=== PATIENT | female | born 1990 | race Caucasian/White ===

== ENCOUNTER 2020-12-18 12:31 | Outpatient (CLI) | payer MEDICAID ==
[~2020-12-18 12:31] MED LIST: HYDR-4383 PO; NO HOME MEDS
== END 2020-12-18 23:59 | disposition home or self-care (01) ==
LOC: RAD 12:31
DX: F11.20 Opioid dependence, uncomplicated (principal)
CPT/HCPCS: 93005

== ENCOUNTER 2023-10-19 15:22 | Outpatient (CLI) | payer MEDICAID | END 2023-10-19 23:59 | disposition home or self-care (01) | LOC: RAD 15:22 | PROVIDERS: ATTEND Physician Assistant | DX: R94.31 Abnormal electrocardiogram [ECG] [EKG] (principal); F11.20 Opioid dependence, uncomplicated | CPT/HCPCS: 93005 ==

== ENCOUNTER 2024-03-11 10:18 | Emergency (ER) | payer SELFPAY ==
[~2024-03-11] VITALS: Ht 162.6 cm; Wt 97.8 kg
[2024-03-11] MEDS: SUMAtriptan succ. 6 MG/0.5ml vial SQ ONE (12:05)
[2024-03-11] MEDS: ketorolac trometh 30MG/ML vial 30 MG/ML VIAL IM ONE (12:06)
[2024-03-11 12:12] VITALS: BP 140/80; PULSE 70; RESP 16; TEMP 97.7; O2SAT 99
[2024-03-12] MEDS ORDERED: IBUP-1984 PO (13:35)
[2024-03-12] MEDS ORDERED: METO-292 PO (13:35)
[2024-03-12] MEDS ORDERED: DIPH25CA52 PO (13:35)
== END 2024-03-11 12:14 | disposition home or self-care (01) ==
LOC: ER 10:18
DX: G43.909 Migraine, unspecified, not intractable, without status migrainosus (principal); M19.90 Unspecified osteoarthritis, unspecified site
CPT/HCPCS: 96372; 99284; J1885; J3030

== ENCOUNTER 2024-03-12 10:28 | Emergency (ER) | payer OTHER ==
[~2024-03-12] VITALS: Ht 162.6 cm; Wt 96.0 kg
[2024-03-12 10:34] VITALS: TEMP 97.8
[2024-03-12 13:28] VITALS: BP 114/79; PULSE 79; O2SAT 95
[2024-03-12] MEDS ORDERED: IBUP-1984 PO (13:35)
[2024-03-12] MEDS ORDERED: DIPH25CA52 PO (13:35)
[2024-03-12] MEDS ORDERED: METO-292 PO (13:35)
[2024-03-12 13:47] VITALS: RESP 16
[2024-03-12] MEDS: proCHLORperazine 10 MG/2 ml inj IM ONE (13:47)
[2024-03-12] MEDS: ketorolac trometh 15mg/ml vial 15 MG/ML ML IM ONE (13:47)
[2024-03-12] MEDS: diphenhydrAMINE 25mg capsule PO ONE (13:48)
== END 2024-03-12 13:53 | disposition home or self-care (01) ==
LOC: ER 10:28
DX: G43.909 Migraine, unspecified, not intractable, without status migrainosus (principal); M19.90 Unspecified osteoarthritis, unspecified site
CPT/HCPCS: 96372; 99284; J0780; J1885; Q0163

== ENCOUNTER 2024-04-08 08:08 | Emergency (ER) | payer OTHER ==
[~2024-04-08] VITALS: Ht 162.6 cm; Wt 90.0 kg
[~2024-04-08 08:08] MED LIST changes: +DIPH25CA52 PO; +METO-292 PO
[2024-04-08 08:09] VITALS: BP 138/94; PULSE 117; RESP 16; O2SAT 98
[2024-04-08 10:30] LABS: STREP A SCREEN NEGATIVE (Neg)
[2024-04-08] MEDS ORDERED: PRED10TA23 PO (10:34)
[2024-04-08 11:01] VITALS: TEMP 98.2
== END 2024-04-08 11:02 | disposition home or self-care (01) ==
LOC: ER 08:08
DX: J39.2 Other diseases of pharynx (principal); J02.9 Acute pharyngitis, unspecified; G43.909 Migraine, unspecified, not intractable, without status migrainosus; M19.90 Unspecified osteoarthritis, unspecified site; Z79.52 Long term (current) use of systemic steroids
CPT/HCPCS: 87081; 87880; 99283

== ENCOUNTER 2024-04-17 07:55 | Emergency (ER) | payer SELFPAY ==
[~2024-04-17] VITALS: Ht 162.6 cm; Wt 101.5 kg
[2024-04-17] MEDS ORDERED: PRED20TA PO (08:38)
[2024-04-17] MEDS: ketorolac trometh 15mg/ml vial 15 MG/ML ML IM ONE (08:48)
[2024-04-17] MEDS: predniSONE 20 mg tablet PO ONE ×2 (08:49)
[2024-04-17 09:08] VITALS: BP 153/102; PULSE 92; RESP 16; TEMP 98; O2SAT 99
== END 2024-04-17 09:09 | disposition home or self-care (01) ==
LOC: ER 07:56
DX: H20.9 Unspecified iridocyclitis (principal); M19.90 Unspecified osteoarthritis, unspecified site; G43.909 Migraine, unspecified, not intractable, without status migrainosus
CPT/HCPCS: 96372; 99283; J1885; J7512

== ENCOUNTER → 2024-04-20 | Emergency (ER) | payer OTHER ==
[~2024-04-20] VITALS: Ht 162.6 cm; Wt 95.5 kg
[~2024-04-20] MED LIST changes: +PRED20TA PO
[2024-04-20 15:10] VITALS: BP 135/90; PULSE 103; RESP 18; O2SAT 96
[2024-04-20 15:22] VITALS: TEMP 97.2
== END | disposition home or self-care (01) ==
LOC: ER 14:26
DX: Z02.9 Encounter for administrative examinations, unspecified (principal); J02.9 Acute pharyngitis, unspecified; G43.909 Migraine, unspecified, not intractable, without status migrainosus; M19.90 Unspecified osteoarthritis, unspecified site; Z79.52 Long term (current) use of systemic steroids; Z76.89 Persons encountering health services in other specified circumstances
CPT/HCPCS: 99281

== ENCOUNTER 2024-05-08 18:25 | Emergency (ER) | payer OTHER ==
[~2024-05-08] VITALS: Ht 165.1 cm; Wt 100.0 kg
[2024-05-08] MEDS ORDERED: ketorolac trometh 15mg/ml vial 15 MG/ML ML IM ONE (19:30)
[2024-05-08] MEDS: prednisoLONE acetate 1% ophth susp 5ml EACHEYE ONE (19:48)
[2024-05-08] MEDS: ketorolac trometh 30MG/ML vial 30 MG/ML VIAL IM ONE (19:48)
[2024-05-08] MEDS ORDERED: PRED50TA PO (20:16)
[2024-05-08 20:29] VITALS: BP 120/90; PULSE 96; RESP 18; TEMP 98.6; O2SAT 99
== END 2024-05-08 20:30 | disposition home or self-care (01) ==
LOC: ER 18:25
DX: H20.9 Unspecified iridocyclitis (principal); M19.90 Unspecified osteoarthritis, unspecified site; G43.909 Migraine, unspecified, not intractable, without status migrainosus
CPT/HCPCS: 96372; 99283; J1885

== ENCOUNTER 2024-05-15 21:39 | Emergency (ER) | payer OTHER ==
[~2024-05-15] VITALS: Ht 162.6 cm; Wt 99.0 kg
[~2024-05-15 21:39] MED LIST changes: +PRED50TA PO
[2024-05-15] MEDS ORDERED: PRED20TA PO (23:06)
[2024-05-15] MEDS: dexamethasone sod phosphate 10mg/ml inj IM STA (23:16)
[2024-05-15] MEDS: ketorolac trometh 15mg/ml vial 15 MG/ML ML IM ONE (23:17)
[2024-05-15] MEDS ORDERED: HYDR-3965 PO (23:22)
[2024-05-15 23:33] VITALS: BP 132/80; PULSE 99; RESP 20; TEMP 98.9; O2SAT 99
== END 2024-05-15 23:34 | disposition home or self-care (01) ==
LOC: ER 21:39
DX: H20.9 Unspecified iridocyclitis (principal); M19.90 Unspecified osteoarthritis, unspecified site; G43.909 Migraine, unspecified, not intractable, without status migrainosus
CPT/HCPCS: 96372; 99284; J1100; J1885